=== PATIENT | male | born 1995 | race Caucasian/White ===

== ENCOUNTER 2018-07-28 09:28 | Emergency (ER) | payer MEDICAID ==
[2018-07-28 09:37] VITALS: BP 118/64; PULSE 75; RESP 18; TEMP 98.1; O2SAT 99
--- NOTE | 2018-07-28 10:21 | ED PDOC ---
HPI: Male Pain Time Seen by Provider: 07/28/18 09:54 Chief Complaint (Nursing): Male Genitourinary Chief Complaint (Provider): STD evaluation History Per: Patient History/Exam Limitations: no limitations Onset/Duration Of Symptoms: Days (today) Current Symptoms Are (Timing): Still Present Additional Complaint(s): Pt. states he is here to get checked for chlamydia. His girlfriend was diagnosed with it and he was told to get checked out. Has no abd pain, nausea, vomit, diarrhea, weakness, headaches, dizziness, fever, vaginal dc, penis pain, dysuria. No testicular pain. Past Medical History Reviewed: Nursing Documentation, Vital Signs Vital Signs: Last Vital Signs Temp 98.1 F 07/28/18 09:36 Pulse 75 07/28/18 09:36 Resp 18 07/28/18 09:36 BP 118/64 07/28/18 09:36 Pulse Ox 99 07/28/18 09:36 - Medical History PMH: No Chronic Diseases Denies: Chronic Kidney Disease - Surgical History Surgical History: No Surg Hx - Family History Family History: States: Unknown Family Hx - Home Medications Home Medications: Ambulatory Orders Medication Instructions Recorded Doxycycline Hyclate 100 mg PO BID 7 Days capsule 07/28/18 - Allergies Allergies/Adverse Reactions: Allergies Allergy/AdvReac Type Severity Reaction Status Date / Time No Known Allergies Allergy Verified 07/28/18 09:44 Review of Systems Constitutional: Negative for: Fever, Weakness Cardiovascular: Negative for: Chest Pain Respiratory: Negative for: Cough, Shortness of Breath Gastrointestinal: Negative for: Nausea, Vomiting, Abdominal Pain Genitourinary Male: Negative for: Dysuria, Frequency, Hematuria, Penile Discharge, Scrotal Pain Musculoskeletal: Negative for: Neck Pain Neurological: Negative for: Weakness Physical Exam - Reviewed Nursing Documentation Reviewed: Yes Vital Signs Reviewed: Yes - Physical Exam Appears: Positive for: Well, Non-toxic, No Acute Distress Head Exam: Positive for: ATRAUMATIC, NORMAL INSPECTION, NORMOCEPHALIC Skin: Positive for: Normal Color, Warm, DRY Cardiovascular/Chest: Positive for: Regular Rate, Rhythm Respiratory: Positive for: CNT, Normal Breath Sounds Gastrointestinal/Abdominal: Positive for: Normal Exam, Soft. Negative for: Tenderness Male Genital Exam: Positive for: normal genitalia. Negative for: scrotum tenderness (R), scrotum tenderness (L), urethral discharge Back: Positive for: Normal Inspection. Negative for: L CVA Tenderness, R CVA Tenderness Extremity: Positive for: Normal ROM. Negative for: Tenderness Neurologic/Psych: Positive for: Alert, Oriented - ECG O2 Sat by Pulse Oximetry: 99 - Progress ED Course And Treament: 1037: Girlfriend was given azithromycin, but seems it did not work for her. Will give pt. doxy and sent cultures. Disposition - Clinical Impression Clinical Impression: Chlamydia - Patient ED Disposition Is Patient to be Admitted: No Counseled Patient/Family Regarding: Studies Performed, Diagnosis, Need For Followup, Rx Given - Disposition Referrals: [facility] [Outside] - 07/29/18 Disposition: Routine/Home Disposition Time: 10:38 Condition: STABLE Additional Instructions: Return if not better in 3 days. Prescriptions: Doxycycline Hyclate 100 mg PO BID 7 Days capsule Instructions: Chlamydia (DC)
== END 2018-07-28 10:50 | disposition home or self-care (01) ==
LOC: H.ER 09:28
DX: A74.9 Chlamydial infection, unspecified (principal)